=== PATIENT | male | born 1980 | race Caucasian/White ===

== ENCOUNTER 2019-11-01 11:42 | Emergency (ER) | payer MEDICAID, OTHER ==
[~2019-11-01] VITALS: Ht 175.3 cm; Wt 72.7 kg
[2019-11-01 11:46] VITALS: BP 162/92
[2019-11-01] MEDS ORDERED: pseudoephedrine 30mg tablet PO ONE (13:30)
[2019-11-01] MEDS ORDERED: FLUT16SP2 BOTHNARES (13:36)
== END 2019-11-01 13:54 | disposition home or self-care (01) ==
LOC: ER 11:43
DX: R51 Headache (principal); Z88.8 Allergy status to other drugs, medicaments and biological substances; Z79.899 Other long term (current) drug therapy
CPT/HCPCS: 99283

== ENCOUNTER 2019-11-06 14:11 | Emergency (ER) | payer MEDICAID, OTHER ==
[~2019-11-06] VITALS: Ht 175.3 cm; Wt 70.0 kg
[~2019-11-06 14:11] MED LIST: FLUT16SP2 BOTHNARES; LIDOcaine 1% w/EPI 1:100,000 30ml vial (MDV) ONE
[2019-11-06] MEDS ORDERED: acetaminophen 325mg tablet PO ONE (15:15)
[2019-11-06] MEDS ORDERED: proparacaine 0.5% ophthalmic drops 15ml EACHEYE ONE (15:15)
--- NOTE | 2019-11-06 15:55 | NUR ---
unable to document pt vitals as pt data can't recalled from system due to it tech working on it.
[2019-11-06] MEDS ORDERED: GABA300C PO (16:56)
[2019-11-06] MEDS ORDERED: ACYC-202 PO (16:56)
[2019-11-06] MEDS ORDERED: ACET-1025 PO (16:56)
[2019-11-06] MEDS ORDERED: CLIN150C8 PO (16:56)
[2019-11-06 17:18] VITALS: BP 155/76
== END 2019-11-06 17:20 | disposition home or self-care (01) ==
LOC: ER 14:11
DX: R51 Headache (principal); R20.8 Other disturbances of skin sensation; F12.90 Cannabis use, unspecified, uncomplicated; Z88.8 Allergy status to other drugs, medicaments and biological substances; Z79.899 Other long term (current) drug therapy
CPT/HCPCS: 99282